=== PATIENT | male | born 1955 ===

== ENCOUNTER 2021-05-25 16:51 | Inpatient (IN) | payer OTHER ==
[~2021-05-25] VITALS: Ht 175.3 cm; Wt 116.6 kg
[2021-05-25] MEDS ORDERED: HYDROcodone-ACET 5/325MG TAB PO ONE (19:00)
[2021-05-25 19:09] LABS: Basophils # (auto) 0.1 10 ^3/uL (0-0.2); Basophils % (auto) 0.6 % (0.0-2.0); Eosinophils # (auto) 0.1 10 ^3/uL (0-0.8); Eosinophils % (auto) 0.5 % (0.0-7.0); Mean Corpuscular Hgb Conc. 32.1 g/dL (32.0-36.0)
[2021-05-25 19:11] LABS: Hematocrit 45.1 % (41.0-53.0); Hemoglobin 14.5 g/dL (13.5-17.5); Lymphocytes # (auto) 1.6 10 ^3/uL (0.4-5.4); Lymphocytes % (auto) 14.5 % (10.0-50.0); Mean Corpuscular Hemoglobin 25.8 pg (28.0-32.0); Mean Corpuscular Volume 80.3 fL (80.0-100.0); Monocytes # (auto) 0.6 10 ^3/uL (0-1.3); Monocytes % (auto) 5.1 % (0.0-12.0); Neutrophils # (auto) 8.8 10 ^3/uL (1.6-8.6); Neutrophils % (auto) 79.3 % (37.0-80.0); Nucleated Red Blood Cells % 0.1 %; Red Blood Cells 5.61 10^6/uL (4.5-5.90); Red Cell Distribution Width 14.5 % (11.8-14.3); White Blood Cell 11.1 10^3/uL (4.4-10.8)
[2021-05-25 19:24] LABS: Albumin 3.7 g/dL (3.4-5.0); BUN/Creatinine Ratio 17.3; Calcium 9.2 mg/dL (8.5-10.1); Potassium 4.3 mmol/L (3.5-5.1)
[2021-05-25 19:36] LABS: Bilirubin, Total 0.4 mg/dL (0.2-1.0); Total Protein 7.6 g/dL (6.4-8.2)
[2021-05-25] MEDS ORDERED: diazePAM 5 MG TAB PO ONE (20:45)
[2021-05-26] MEDS ORDERED: PROPOFOL 10 MG/ML 20 ML IV ONE ×3 (01:15→14:50)
[2021-05-26] MEDS ORDERED: PROPOFOL 100 ML IV ONE (01:20)
[2021-05-26] MEDS ORDERED: MORPHINE SULFATE 4 MG/ML SYR/VIAL IV ONE (03:00)
[2021-05-26] MEDS ORDERED: ACETAMINOPHEN 325 MG TAB PO PRN (04:00)
[2021-05-26] MEDS ORDERED: HYDROcodone-ACET 5/325MG TAB PO PRN (04:00)
[2021-05-26] MEDS ORDERED: TEMAZEPAM 15 MG CAP PO PRN (04:00)
[2021-05-26] MEDS ORDERED: DEXTROSE (50%) 50ML SYRG IV PRN (04:00)
[2021-05-26] MEDS ORDERED: ONDANSETRON HCL 4 MG/2 ML VIAL IV PRN ×2 (04:00→15:45)
[2021-05-26] MEDS ORDERED: MORPHINE SULFATE 4 MG/ML SYR/VIAL IV PRN ×2 (04:00→15:45)
[2021-05-26] MEDS: ACCU-CHEK COMFORT CURVE STRIP VI SCH ×4 (07:40→21:55)
[2021-05-26] MEDS: InsuLIN REG 1unit/0.01ml Soln (100units/ml) SC SCH ×4 (08:05→21:54)
[2021-05-26] MEDS: PANTOPRAZOLE 40 MG TAB PO SCH (08:42)
[2021-05-26] MEDS ORDERED: fentaNYL CITRATE 100 MCG/2 ML VL ONE (14:43)
[2021-05-26] MEDS ORDERED: MIDAZOLAM HCL 2MG/2ML 2ml VIAL (1mg/ml) ONE (14:43)
[2021-05-26] MEDS ORDERED: CHOL50004 PO (15:40)
[2021-05-26] MEDS ORDERED: TEMA15CA2 PO (15:40)
[2021-05-26] MEDS ORDERED: PIOG1TAB36 PO (15:40)
[2021-05-26] MEDS ORDERED: ROSU1TAB15 PO (15:40)
[2021-05-26] MEDS ORDERED: GLIP10TA16 PO (15:40)
[2021-05-26] MEDS ORDERED: SERT-160 PO (15:40)
[2021-05-26] MEDS ORDERED: FENO145T27 PO (15:40)
[2021-05-26] MEDS ORDERED: METO-289 PO (15:40)
[2021-05-26] MEDS ORDERED: AMLO-489 PO (15:40)
[2021-05-26] MEDS ORDERED: HYDR-4296 PO (15:41)
[2021-05-26] MEDS ORDERED: ePHEDrine SULFATE 50 MG/ML AMP IV PRN (15:45)
[2021-05-26] MEDS ORDERED: LABETALOL HCL 5 MG/ML 4ML SYRINGE IV PRN (15:45)
[2021-05-26] MEDS ORDERED: HYDROmorphone HCL 2 MG/ML VL IV PRN (15:45)
[2021-05-26] MEDS ORDERED: MIDAZOLAM HCL 2MG/2ML 2ml VIAL (1mg/ml) IV PRN (15:45)
[2021-05-26 18:15] VITALS: BP 135/69
[2021-05-26 20:00] VITALS: BP 135/69
[2021-05-26 21:25] VITALS: BP 139/74
[2021-05-27 04:48] VITALS: BP 133/62
[2021-05-27] MEDS: InsuLIN REG 1unit/0.01ml Soln (100units/ml) SC SCH ×3 (06:39→17:25)
[2021-05-27] MEDS: ACCU-CHEK COMFORT CURVE STRIP VI SCH ×3 (06:39→17:25)
[2021-05-27 07:43] LABS: Basophils # (auto) 0 10 ^3/uL (0-0.2); Basophils % (auto) 0.4 % (0.0-2.0); Eosinophils # (auto) 0.2 10 ^3/uL (0-0.8); Hematocrit 39.8 % (41.0-53.0); Hemoglobin 13.2 g/dL (13.5-17.5); Lymphocytes # (auto) 1.6 10 ^3/uL (0.4-5.4); Lymphocytes % (auto) 19.4 % (10.0-50.0); Mean Corpuscular Hgb Conc. 33.2 g/dL (32.0-36.0); Mean Corpuscular Volume 81.3 fL (80.0-100.0); Monocytes # (auto) 0.7 10 ^3/uL (0-1.3); Monocytes % (auto) 9.1 % (0.0-12.0); Neutrophils # (auto) 5.5 10 ^3/uL (1.6-8.6); Neutrophils % (auto) 69.1 % (37.0-80.0); Red Cell Distribution Width 14.6 % (11.8-14.3)
[2021-05-27 07:57] LABS: Potassium 3.7 mmol/L (3.5-5.1)
[2021-05-27 08:01] LABS: Calcium 8.4 mg/dL (8.5-10.1)
[2021-05-27] MEDS: PANTOPRAZOLE 40 MG TAB PO SCH (08:58)
[2021-05-27 09:00] VITALS: BP 130/80
[2021-05-27 13:00] VITALS: BP 120/75
[2021-05-27 17:00] VITALS: BP 126/81
[2021-05-27 20:04] VITALS: BP 135/69
== END 2021-05-27 20:00 | disposition home or self-care (01) | DRG 561 ==
LOC: ER 16:51 → EDBD 16:51 → OVERFLOW 05-26 03:47 → EAST 05-26 18:30
PROVIDERS: ADMIT Nurse Practitioner; ATTEND Internal Medicine
PROC: 0SS9XZZ Reposition Right Hip Joint, External Approach (ICD-10-PCS; principal; 2021-05-26 14:56)
DX: T84.020A Dislocation of internal right hip prosthesis, initial encounter (principal); E11.9 Type 2 diabetes mellitus without complications; I10 Essential (primary) hypertension; I25.10 Atherosclerotic heart disease of native coronary artery without angina pectoris; Z20.822 Contact with and (suspected) exposure to COVID-19; J44.9 Chronic obstructive pulmonary disease, unspecified; Y79.2 Prosthetic and other implants, materials and accessory orthopedic devices associated with adverse incidents; Z96.651 Presence of right artificial knee joint; Z95.1 Presence of aortocoronary bypass graft; Z87.891 Personal history of nicotine dependence; Z98.1 Arthrodesis status
CPT/HCPCS: 27250; 36415; 72170; 73502; 80048; 80053; 82962; 85025; 87426; 97163; 99152; 99153; G0378; J1815; J2250; J2405; J2704